=== PATIENT | female | born 1980 | race Caucasian/White ===

== ENCOUNTER 2020-04-06 17:57 | Emergency (ER) | payer OTHER ==
[2020-04-06] MEDS ORDERED: HYDROcodone/Acetaminophen 5/325 mg Tablet ONE (19:35)
[2020-04-06] MEDS ORDERED: HYDROcodone/Acetaminophen 10/325 mg Tablet ONE (19:36)
== END 2020-04-06 20:24 | disposition home or self-care (01) ==
LOC: ERS 17:57
DX: G89.18 Other acute postprocedural pain (principal); E78.5 Hyperlipidemia, unspecified; E78.00 Pure hypercholesterolemia, unspecified; I10 Essential (primary) hypertension; F31.9 Bipolar disorder, unspecified; F41.9 Anxiety disorder, unspecified; F17.210 Nicotine dependence, cigarettes, uncomplicated; Z79.899 Other long term (current) drug therapy; S62.307D Unspecified fracture of fifth metacarpal bone, left hand, subsequent encounter for fracture with routine healing
CPT/HCPCS: 29125

== ENCOUNTER 2020-06-02 07:29 | Outpatient (CLI) | payer OTHER ==
--- NOTE | 2020-06-02 08:57 | MRI ---
MRI LUMBAR SPINE: Date: 06/02/2020 PROVIDED CLINICAL HISTORY: Low back pain and radiculopathy. FINDINGS: Five lumbar vertebral bodies are assumed. Lumbar alignment appears normal. Vertebral body heights ashwin ear preserved. No focal concerning regional marrow signal abnormality is evident. The conus medullari s is normal in size and terminates at an appropriate level. There is a diffusely congenitally narrowe d spinal canal. There is either an exophytic mass or lobulation of the right kidney posteriorly at t he mid portion. The visualized extraspinal soft tissues appear otherwise unremarkable. At L1-2, there is bilateral facet arthrosis without significant central canal or foraminal narrowing apparent. At L2-3, there is bilateral facet arthrosis without significant central canal or foraminal narrowing apparent. At L3-4, there is advanced bilateral facet arthrosis and a broad disc bulge. There is mild bilateral subarticular narrowing and mild central canal stenosis. There is moderate bilateral foraminal narrowi ng. At L4-5, there is advanced bilateral facet arthrosis and a broad disc bulge. There is a small synovia l cyst emanating from the anterior aspect of the right L4-5 facet joint which has the potential to im pinge upon the traversing right L5 nerve root. This is superimposed upon moderate-severe right subart icular narrowing on the basis of facet arthritis. There is mild-moderate left subarticular narrowing. There is mild-moderate central canal stenosis. There is severe left foraminal narrowing and mild-mod erate right foraminal narrowing. At L5-S1, there is advanced bilateral facet arthrosis and a broad disc bulge. There is mild-moderate left subarticular narrowing. There is severe left foraminal narrowing. There is moderate right forami nal narrowing with potential for impingement on the exited right L5 nerve root in the post foraminal region due to eccentricity of the disc bulge. IMPRESSION: 1. 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 2. Possible right renal mass. Correlation with renal ultrasound is recommended. CODE T. POS: KRISHAN
== END 2020-06-02 07:30 | disposition home or self-care (01) ==
LOC: BICMRI 07:29
PROVIDERS: ATTEND Nurse Practitioner Family
DX: M47.26 Other spondylosis with radiculopathy, lumbar region (principal); M51.16 Intervertebral disc disorders with radiculopathy, lumbar region; M48.061 Spinal stenosis, lumbar region without neurogenic claudication; M48.07 Spinal stenosis, lumbosacral region; M47.817 Spondylosis without myelopathy or radiculopathy, lumbosacral region
CPT/HCPCS: 72148